=== PATIENT | female | born 1945 | race Caucasian/White ===

== ENCOUNTER 2017-03-20 09:25 | Emergency (ER) | payer MEDICARE ==
[~2017-03-20] VITALS: Ht 172.7 cm; Wt 65.4 kg
[~2017-03-20 09:25] MED LIST: DENO60DI INJ; FLUO20CA8 PO; LISI-170 PO; ROSU20TA PO
[2017-03-20] MEDS ORDERED: SODIUM CHLORIDE 0.9% 1,000ML IVBOLUS ONE (11:00)
[2017-03-20] MEDS ORDERED: SODIUM CHLORIDE FLUSH 10ML SYR IVF ONE (11:00)
[2017-03-20 11:06] VITALS: BP 182/114
[2017-03-20 11:41] LABS: BLOOD UREA NITROGEN 17 mg/dL (7-18)
[2017-03-20 11:45] LABS: IS PT STATUS REG ER OR PRE ER? YES
== END 2017-03-20 12:36 | disposition home or self-care (01) ==
LOC: ED 11:28
DX: S09.90XA Unspecified injury of head, initial encounter (principal); R42 Dizziness and giddiness; I10 Essential (primary) hypertension; W01.0XXA Fall on same level from slipping, tripping and stumbling without subsequent striking against object, initial encounter; Y93.89 Activity, other specified; Y92.511 Restaurant or cafe as the place of occurrence of the external cause; Y99.9 Unspecified external cause status
CPT/HCPCS: 36415; 80048; 81003; 82040; 83735; 84443; 84484; 85025; 85610; 93005; 93880; 96360; 96361; 99285; J7030

== ENCOUNTER → 2017-03-21 | Outpatient (CLI) | payer MEDICARE | END | disposition home or self-care (01) | LOC: CARD 08:54 | PROVIDERS: ATTEND Emergency Medicine | DX: R00.2 Palpitations (principal) | CPT/HCPCS: 93225; 93226 ==

== ENCOUNTER → 2017-05-08 | Outpatient (CLI) | payer MEDICARE | END | disposition home or self-care (01) | LOC: CFH 08:11 | PROVIDERS: ATTEND Internal Medicine Cardiovascular Disease | DX: I08.3 Combined rheumatic disorders of mitral, aortic and tricuspid valves (principal); I10 Essential (primary) hypertension | CPT/HCPCS: 78452; 93017; 93306; A9502 ==

== ENCOUNTER 2017-06-08 14:00 | Emergency (ER) | payer MEDICARE ==
[~2017-06-08] VITALS: Ht 172.7 cm; Wt 66.0 kg
[2017-06-08] MEDS ORDERED: DIAZEPAM 5 MG TABLET PO ONE (14:30)
[2017-06-08] MEDS ORDERED: HYDROcodone/APAP 5/325 TABLET PO ONE (14:30)
[2017-06-08] MEDS ORDERED: KETOROLAC 30 MG/1 ML IM ONE (14:30)
[2017-06-08 14:45] LABS: BLOOD UREA NITROGEN 12 mg/dL (7-18)
[2017-06-08] MEDS ORDERED: HYDROcodone/APAP 5/325 TABLET ONE (14:50)
[2017-06-08] MEDS ORDERED: DIAZEPAM 5 MG TABLET ONE (14:50)
[2017-06-08] MEDS ORDERED: KETOROLAC 30 MG/1 ML ONE (14:50)
[2017-06-08 14:51] LABS: IS PT STATUS REG ER OR PRE ER? YES
[2017-06-08 16:13] VITALS: BP 135/90
== END 2017-06-08 16:16 | disposition home or self-care (01) ==
LOC: ED 14:24
DX: M54.5 Low back pain (principal); R42 Dizziness and giddiness; I10 Essential (primary) hypertension; E78.00 Pure hypercholesterolemia, unspecified
CPT/HCPCS: 36415; 71010; 72110; 80048; 82040; 84484; 85025; 93005; 96372; 99285; J1885

== ENCOUNTER → 2017-08-08 | Outpatient (CLI) | payer MEDICARE | END | disposition home or self-care (01) | LOC: CFH 14:02 | PROVIDERS: ATTEND Internal Medicine Cardiovascular Disease | DX: Z13.6 Encounter for screening for cardiovascular disorders (principal); R94.30 Abnormal result of cardiovascular function study, unspecified | CPT/HCPCS: 75571 ==